=== PATIENT | male | born 1960 ===

== ENCOUNTER 2025-03-17 07:00 | Day surgery (SDC) | payer OTHER ==
[2025-03-10 08:58] VITALS: BP 122/76
[2025-03-10 09:01] LABS: BASO % 0.8 % (0.1-1.2); EOS # 0.24 (0.04-0.54); EOS % 4.6 % (0.7-7.0); LYMPH # 1.14 (1.18-3.74); LYMPH % 21.8 % (19.3-53.1); MEAN PLATELET VOLUME 13.20 fl (9.4-12.4); MONO # 0.78 (0.24-0.82); NEUT # 3.03 (1.56-6.13); NEUT % 57.7 % (34.0-71.1); RED CELL DISTRIBUTION WIDTH 12.7 % (11.6-14.4)
[2025-03-10 09:07] LABS: MONO % 14.9 % (4.7-12.5)
[2025-03-10 09:20] LABS: URINE APPEARANCE Clear; URINE BILIRRUBIN Negative (NEGATIVE); URINE BLOOD Negative; URINE COLOR Yellow; URINE GLUCOSE Negative (NEGATIVE); URINE KETONE Negative (NEGATIVE); URINE LEUKOCYTE Negative; URINE NITRATE Negative; URINE PROTEIN Negative (NEGATIVE); URINE UROBILINOGEN 1.0 E.U./dl
[2025-03-10 09:21] LABS: URINE BACTERIA 9.5 uL (0.0-1933); URINE RBC 4.6 uL (0.0-20.8); URINE WBC 1.8 uL (0.0-23.2)
[2025-03-10 09:36] LABS: URINE CAST 0.00 uL (0.0-1.40); URINE EPITHELIAL CELLS 0.6 uL (0.0-38.8)
[2025-03-10 09:43] LABS: INR 1.17
[2025-03-10 09:51] LABS: ALT/SGPT 27.0 U/L (12-78); AST/SGOT 22.0 U/L (15-37); BILIRUBIN TOTAL 0.64 mg/dL (0.3-1.2); BUN CREA RATIO 20.0 (7.0-25.0); CREATININE SERUM 0.91 mg/dL (0.70-1.30); GFR 83.36; GLOBULINA 2.8 G/DL (2.4-3.5); GLUCOSE FASTING 106.0 mg/dL (65-100); OSMOLALITY SERUM 287.0 MOSM/KG (275-295)
[~2025-03-17] VITALS: Ht 172.7 cm; Wt 88.5 kg
[~2025-03-17 07:00] MED LIST: ATORVASTATIN CA80 MG PO; CARVEDILOL6.25 MG; COZAAR25 MG PO; PLAVIX75 MG PO; SPIRONOLACTONE25 MG PO
[2025-03-17] MEDS ORDERED: CEFAZOLIN SODIUM 1,000 MG VIAL ONE ×2 (07:51→11:22)
[2025-03-17] MEDS ORDERED: SUGAMMADEX SODIUM 200 MG/2 ML VIAL IV ONE (10:23)
[2025-03-17] MEDS ORDERED: CEFAZOLIN SODIUM 1,000 MG VIAL IV SCH (11:00)
== END 2025-03-17 14:05 | disposition home or self-care (01) ==
LOC: CIR.AMB 07:00
PROVIDERS: ATTEND Specialist
DX: K42.9 Umbilical hernia without obstruction or gangrene (principal)